=== PATIENT | female | born 1960 | race African-American/Black ===

== ENCOUNTER → 2019-08-28 | Outpatient (CLI) | payer MEDICARE ==
[~2019-08-28] MED LIST: ALBUTEROL0.63 MG/3; AMBIEN10 MG PO; ATORVASTATIN CA20 MG PO; DALIRESP500 MCG; DIPHENHYDRAMINE25 M1 PO; FUROSEMIDE40 MG PO; GABAPENTIN300 MG PO; GLIMEPIRIDE2 MG PO; HYDROCHLOROTH12.5 M1 PO; LEVOCETIRIZINE D5 MG PO; LISINOPRIL10 MG PO; NAPROXEN250 MG PO; NOVOLOG100 UNIT/1; PAROXETINE HCL20 MG PO; PREDNISONE10 MG PO; PROMETHAZINE HC25 M1 PO; SPIRIVA18 MCG INH; breo ellipta
== END ==
LOC: MAMMO 11:46
PROVIDERS: ATTEND Internal Medicine
DX: Z12.31 Encounter for screening mammogram for malignant neoplasm of breast (principal)
CPT/HCPCS: 77067

== ENCOUNTER → 2019-09-18 | Outpatient (CLI) | payer MEDICARE ==
--- NOTE | 2019-09-19 08:54 | Diagnostic Imaging Report ---
#[id number] - [id number] #UNILATERAL RIGHT DIGITAL DIAGNOSTIC MAMMOGRAM WITH SPOT COMPRESSION AND MAGNIFICATION: 09/18/2019 Comparison is made to exams dated: 08/28/2019 mammogram and 05/12/2017 mammogram - [facility]. Current study contains 5 films. There are scattered fibroglandular elements in the right breast. There are several punctate calcifications in the right axillary tail. This is seen in additional views, some very superficial on tangential view and therefore possible dermal. Further review of prior imaging shows that a single MLO view from 05/12/2017 does show a portion of the calcifications seen on today's exam, and this visible portion appears unchanged. No other significant masses or calcifications are seen in the breast. IMPRESSION: PROBABLY BENIGN The punctate calcifications are probably benign. A follow-up mammogram in 6 months is recommended to demonstrate stability. The findings were discussed with the patient. JONO MENDOZA M.D. ct/:09/18/2019 11:58:39 [employer]: Rebeca DAVENPORT(Leticia)(Best), [facility] letter sent: Followup Recommended Mammogram BI-RADS: 3 Probably benign
== END ==
LOC: MAMMO 10:31
PROVIDERS: ATTEND Internal Medicine
DX: R92.1 Mammographic calcification found on diagnostic imaging of breast (principal)

== ENCOUNTER → 2020-03-31 | Outpatient (CLI) | payer OTHER, MEDICARE ==
--- NOTE | 2020-03-31 15:39 | Diagnostic Imaging Report ---
EXAM: US ABDOMEN COMPLETE DATE: 03/31/2020 12:57 PM INDICATION: Acute pancreatitis COMPARISON: None TECHNIQUE: Transverse and longitudinal mcdonnell scale and color doppler sonographic images of the upper abdomen were obtained. FINDINGS: LIVER 16.5 cm in the right midclavicular line. Normal echogenicity of the liver with normal contour, no masses. SPLEEN 8.5 cm in maximum diameter. Normal echogenicity, no masses. GALLBLADDER No gallbladder wall thickening, distension, stone, or pericholecystic fluid. Negative reported sonographic Nielsen's sign. The gallbladder wall measures 3mm BILE DUCTS No intra nor extra-hepatic biliary dilation. Common bile duct measures 5mm PANCREAS: Visualized portions are normal. RIGHT KIDNEY: 10.1 cm Echogenicity: Normal Collecting System: No hydronephrosis Stones: None Cyst/Mass: None LEFT KIDNEY: 9.8 cm Echogenicity: Normal Collecting System: No hydronephrosis Stones: None Cyst/Mass: None VESSELS: Aorta: Visualized portions are within normal size limits Inferior Vena Cava: Visualized portions are normal Main Portal Vein: 0.9 cm, normal size with hepatopetal flow. FREE FLUID: None IMPRESSION: Unremarkable abdominal ultrasound. Signed by: Bry Nicolas MD on 03/31/2020 3:36 PM
== END ==
LOC: MAMMO 11:59
PROVIDERS: ATTEND Internal Medicine
DX: Z12.31 Encounter for screening mammogram for malignant neoplasm of breast (principal); K85.90 Acute pancreatitis without necrosis or infection, unspecified
CPT/HCPCS: 76700

== ENCOUNTER → 2020-08-06 | Outpatient (CLI) | payer MEDICARE | LOC: MRI 12:08 | PROVIDERS: ATTEND Internal Medicine | DX: S06.0X0D Concussion without loss of consciousness, subsequent encounter (principal) ==